=== PATIENT | male | born 1945 | race Caucasian/White ===

== ENCOUNTER 2017-03-05 16:39 | Emergency (ER) | payer MEDICARE, BC ==
[2017-03-05 17:19] VITALS: BP 137/74
[2017-03-05] MEDS ORDERED: Cephalexin 250 MG Cap PO ONE (17:26)
[2017-03-05] MEDS ORDERED: Bacitracin/Neomycin/Polymyxin B Oint 0.9 GM U/D Packet ONE (17:28)
--- NOTE | 2017-03-05 17:32 | EDM.PDOC ---
ED HPI GENERAL MEDICAL PROBLEM - General Chief Complaint: Upper Extremity Injury/Pain Stated Complaint: FINGER LACERATION Time Seen by Provider: 03/05/17 17:26 Source of Information: Reports: Patient History Limitations: Reports: No Limitations - History of Present Illness INITIAL COMMENTS - FREE TEXT/NARRATIVE: PT STATES HE WAS DOING WOODWORK WITH AN ELECTRIC SAW AND ACCIDENTALLY CUT LEFT INDEX FINGER. DENIES ANY OTHER INJURY. IS UTD WITH TD. 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 Pain Score (Numeric/FACES): 2 - Related Data Allergies Allergy/AdvReac Type Severity Reaction Status Date / Time No Known Drug Allergies Allergy Cannot Verified 10/20/15 22:21 Remember Home Meds: Home Meds Aspirin [Adult Low Dose Aspirin EC] 81 mg PO DAILY 06/28/14 [History] Atenolol [Tenormin] 25 mg PO DAILY 06/28/14 [History] Cholecalciferol (Vitamin D3) [Vitamin D] 2,000 unit PO DAILY 06/28/14 [History] Lutein/Minerals/Vit A,C & E [Ocuvite] 1 tab PO DAILY 06/28/14 [History] Cephalexin [Keflex] 500 mg PO TID #21 cap 03/05/17 [Rx] Social & Family History - Tobacco Use Smoking Status *Q: Never Smoker Second Hand Smoke Exposure: No - Caffeine Use Caffeine Use: Reports: Coffee - Alcohol Use Days Per Week of Alcohol Use: 0 - Recreational Drug Use Recreational Drug Use: No - Living Situation & Occupation Living situation: Reports: Single Review of Systems - Review of Systems Review Of Systems: ROS reveals no pertinent complaints other than HPI. Constitutional: Reports: No Symptoms Eyes: Reports: No Symptoms Ears: Reports: No Symptoms Nose: Reports: No Symptoms Mouth/Throat: Reports: No Symptoms Respiratory: Reports: No Symptoms Cardiovascular: Reports: No Symptoms GI/Abdominal: Reports: No Symptoms Genitourinary: Reports: No Symptoms Musculoskeletal: Reports: Hand Pain Skin: Reports: Wound (LEFT 4TH DIGIT) Neurological: Reports: No Symptoms Psychiatric: Reports: No Symptoms ED EXAM, GENERAL - Physical Exam Exam: See Below Exam Limited By: No Limitations General Appearance: Alert, WD/WN, No Apparent Distress Throat/Mouth: Normal Inspection, Normal Oropharynx, No Airway Compromise Head: Atraumatic, Normocephalic Respiratory/Chest: No Respiratory Distress Extremities: Other (LEFT 4TH DIGIT DISTAL ASPECT TISSUE AVULSION INVOLVING 1/4 NAIL AND TIP) Neurological: Alert, Oriented, Normal Cognition Psychiatric: Normal Affect, Normal Mood Skin Exam: Warm, Dry, Normal Color, No Rash Course - Vital Signs Last Recorded V/S: Last Vital Signs Temp 99.3 F 03/05/17 16:55 Pulse 84 03/05/17 16:55 Resp 20 03/05/17 16:55 BP 137/74 03/05/17 16:55 Pulse Ox 96 03/05/17 16:55 - Orders/Labs/Meds Orders: Active Orders 24 hr Category Date Time Status Hand 2V Lt [CR] Stat Exams 03/05/17 17:04 Taken Cephalexin [Keflex] Med 03/05/17 17:26 Once 500 mg PO ONETIME ONE - Radiology Interpretation Free Text/Narrative:: LEFT 4TH DIGIT XRAY SHOWS NO FRACTURE - Re-Assessments/Exams Free Text/Narrative Re-Assessment/Exam: 03/05/17 17:32 PT AFEBRILE, NONTOXIC APPEARING, VSS. WOUND HEMOSTATIC AND CLEANED AND DRESSED WITH NEOSPORIN /NONADHESIVE. KEFLEX 500MG GIVEN Departure - Departure Time of Disposition: 17:34 Disposition: Home, Self-Care 01 Condition: Good Clinical Impression: Laceration of finger of left hand with damage to nail Qualifiers: Encounter type: initial encounter Finger: index finger Foreign body presence: without foreign body Qualified Code(s): S61.311A - Laceration without foreign body of left index finger with damage to nail, initial encounter - Discharge Information Instructions: Laceration Care, Adult, [id number], Nail Bed Injury, Easy-to- Read Referrals: Alicja Rivers MD [Primary Care Provider] - Additional Instructions: FOLLOW UP AT [facility] NEXT WEEK FOR RECHECK. RETURN TO ER SOONER IF SYMPTOMS CONTINUE - My Orders Last 24 Hours: My Active Orders 03/05/17 17:04 Hand 2V Lt [CR] Stat 03/05/17 17:26 Cephalexin [Keflex] 500 mg PO ONETIME ONE - Assessment/Plan Last 24 Hours: My Active Orders 03/05/17 17:04 Hand 2V Lt [CR] Stat 03/05/17 17:26 Cephalexin [Keflex] 500 mg PO ONETIME ONE Assessment:: LACERATION TO LEFT INDEX FINGER Plan: F/U WITH PCP
== END 2017-03-05 18:00 | disposition home or self-care (01) ==
LOC: KA.ED 16:39
DX: S61.311A Laceration without foreign body of left index finger with damage to nail, initial encounter (principal); Z79.82 Long term (current) use of aspirin; Z79.899 Other long term (current) drug therapy; W27.0XXA Contact with workbench tool, initial encounter
CPT/HCPCS: 73120; 99283; A9270

== ENCOUNTER 2017-04-01 08:09 | Day surgery (SDC) | payer MEDICARE, BC ==
[~2017-04-01 08:09] MED LIST: Lactated Ringers 1,000 ML IV SCH; Sodium Chloride 0.9% 5 ML Syringe FLUSH PRN
[2017-04-01] MEDS ORDERED: fentaNYL 100 MCG/2 ML SDV ONE (08:17)
[2017-04-01] MEDS ORDERED: Midazolam 1 MG/ML 2 ML SDV ONE (08:17)
[2017-04-01] MEDS ORDERED: Propofol 200 MG/20 ML SDV ONE (08:17)
[2017-04-01] MEDS ORDERED: EPINEPHrine 1:10,000 1 MG/10 ML Syringe ONE (08:36)
[2017-04-01] MEDS ORDERED: Propofol 200 MG/20 ML SDV IV ONE (09:48)
[2017-04-01] MEDS ORDERED: Midazolam 1 MG/ML 2 ML SDV IV ONE (09:48)
[2017-04-01] MEDS ORDERED: fentaNYL 100 MCG/2 ML SDV IV ONE (09:48)
--- NOTE | 2017-04-01 10:16 | PCM.OPNOTE ---
- General Post-Op/Procedure Note Date of Surgery/Procedure: 04/01/17 Operative Procedure(s): Colonoscopy and polypectomy Findings: Normal colonoscopy except for polyp at 15 cm from the anal margin. Pre Op Diagnosis: Screening colonoscopy. Hemoccult-positive stool. Post-Op Diagnosis: Normal colonoscopy except for polyp at 15 cm from the anal margin. Anesthesia Technique: MAC Primary Surgeon: Alicja Rivers Condition: Good Free Text/Narrative:: INFORMED CONSENT: Patient is here today for elective colonoscopy. All aspects of this procedure have been discussed with the patient. All possible complications also, including possibility of perforation, infection, pain, bleeding and unknown complications. In the event of perforation patient may need to have abdominal exploration, colon resection, colostomy and even was discussed. Anesthetic complications were handled by anesthesia department. The patient understands fully well. Patient did not have any further questions for me at the end of my interview. The patient wishes for me to proceed. PREOPERATIVE DIAGNOSIS/INDICATIONS: [Screening] POSTOPERATIVE DIAGNOSIS: [Polyp at 15 cm. Otherwise negative colonoscopy.] INSTRUMENT USED: Olympus videocolonoscope. ASA CLASSIFICATION: [2] ANESTHESIA: Continuous EKG, oximetry and intermittent blood pressure and respiratory monitoring were performed throughout the procedure. IV Versed and Fentanyl were administered. PROCEDURE PERFORMED: Colonoscopy POSITIONS OF PATIENT: Left lateral. RECTUM: Approximate 15 cm from the anal margin and black polyp was identified. This was completely removed using a hot biopsy forceps.. SIGMOID COLON: Normal. DESCENDING COLON: Normal. SPLENIC FLEXURE: Normal. TRANSVERSE COLON: Normal. HEPATIC FLEXURE: Normal. ASCENDING COLON: Normal. CECUM: Normal. ILEOCECAL VALVE: Normal. BIOPSY: None. TOLERANCE: Excellent. COMPLICATIONS: None. Final diagnosis: Normal colonoscopy except for polyp at 15 cm from the anal margin.
[2017-04-01 11:48] VITALS: BP 107/60
== END 2017-04-01 11:15 | disposition home or self-care (01) ==
LOC: KA.SDS 08:09
PROVIDERS: ATTEND Family Medicine
DX: Z12.11 Encounter for screening for malignant neoplasm of colon (principal); D12.6 Benign neoplasm of colon, unspecified; I10 Essential (primary) hypertension; E55.9 Vitamin D deficiency, unspecified; M19.90 Unspecified osteoarthritis, unspecified site; I25.119 Atherosclerotic heart disease of native coronary artery with unspecified angina pectoris; I83.891 Varicose veins of right lower extremity with other complications; E66.01 Morbid (severe) obesity due to excess calories; Z79.82 Long term (current) use of aspirin; Z79.899 Other long term (current) drug therapy; Z68.42 Body mass index [BMI] 45.0-49.9, adult
CPT/HCPCS: 00810; 45384; J2250; J2704; J3010; J7120; 88305

== ENCOUNTER 2019-05-19 21:43 | Emergency (ER) | payer MEDICARE, BC ==
--- NOTE | 2019-05-19 22:28 | EDM.PDOC ---
ED HPI GENERAL MEDICAL PROBLEM - General Chief Complaint: Genitourinary Problem Stated Complaint: CAN'T URINATE Time Seen by Provider: 05/19/19 22:04 Source of Information: Reports: Patient History Limitations: Reports: No Limitations - History of Present Illness INITIAL COMMENTS - FREE TEXT/NARRATIVE: Patient is a 73-year-old gentleman who presents to the emergency department this evening with a complaint of urinary retention. Patient underwent prostate biopsy this afternoon at 1430. Patient states in centimeters been unable to urinate. He said some small dribbling of blood from penis. Patient states he has bladder fullness. Patient denies chest pain, shortness of breath, fever, testicular pain, nausea or vomiting. Onset: Today, Gradual Duration: Hour(s): Location: Reports: Abdomen Quality: Reports: Pressure Severity: Moderate Improves with: Reports: None Worsens with: Reports: None Associated Symptoms: Reports: No Other Symptoms - Related Data Allergies Allergy/AdvReac Type Severity Reaction Status Date / Time No Known Drug Allergies Allergy Cannot Verified 04/01/17 08:21 Remember Home Meds: Home Meds Aspirin [Adult Low Dose Aspirin EC] 81 mg PO DAILY 06/28/14 [History] Atenolol [Tenormin] 25 mg PO DAILY 06/28/14 [History] Cholecalciferol (Vitamin D3) [Vitamin D] 2,000 unit PO DAILY 06/28/14 [History] Lutein/Minerals/Vit A,C & E [Ocuvite] 1 tab PO DAILY 06/28/14 [History] Past Medical History HEENT History: Reports: Impaired Vision Cardiovascular History: Reports: Angina, High Cholesterol, Hypertension, SD, Other (See Below) Other Cardiovascular History: edema Gastrointestinal History: Reports: Hemorrhoids - Infectious Disease History Infectious Disease History: Reports: Rheumatic Fever - Past Surgical History HEENT Surgical History: Reports: Tonsillectomy Cardiovascular Surgical History: Reports: None GI Surgical History: Reports: Colonoscopy Musculoskeletal Surgical History: Reports: Joint Replacement Social & Family History - Family History Cardiac: Reports: Hypertension, SD Endocrine/Metabolic: Reports: Diabetes, type II Oncologic: Reports: Prostate - Caffeine Use Caffeine Use: Reports: Coffee - Living Situation & Occupation Living situation: Reports: Single ED ROS GENERAL - Review of Systems Review Of Systems: Comprehensive ROS is negative, except as noted in HPI. Constitutional: Reports: No Symptoms HEENT: Reports: No Symptoms Respiratory: Reports: No Symptoms Cardiovascular: Reports: No Symptoms Endocrine: Reports: No Symptoms GI/Abdominal: Reports: Abdominal Pain : Reports: Hematuria, Urinary Retention Musculoskeletal: Reports: No Symptoms Skin: Reports: No Symptoms Neurological: Reports: No Symptoms Psychiatric: Reports: No Symptoms Hematologic/Lymphatic: Reports: No Symptoms Immunologic: Reports: No Symptoms ED EXAM, RENAL/ - Physical Exam Exam: See Below Exam Limited By: No Limitations General Appearance: Alert, WD/WN, No Apparent Distress Throat/Mouth: Normal Inspection, Normal Oropharynx, No Airway Compromise Respiratory/Chest: No Respiratory Distress, Lungs Clear Cardiovascular: Normal Peripheral Pulses, Regular Rate, Rhythm GI/Abdominal: Normal Bowel Sounds, Soft, Tender (Mild suprapubic) (Male) Exam: No Hernia, Normal Inspection, Circumcised, Suprapubic Fullness. No: Hernia, Scrotal Swelling, Scrotum Tenderness (L), Scrotum Tenderness (R), Testicular Mass, Testicular Tenderness (L), Testicular Tenderness (R) Back Exam: Normal Inspection. No: CVA Tenderness (L), CVA Tenderness (R) Extremities: Normal Inspection Neurological: Alert, Oriented, Normal Cognition Psychiatric: Normal Affect, Normal Mood Skin Exam: Warm, Dry, Intact, Normal Color, No Rash Course - Orders/Labs/Meds Orders: Active Orders 24 hr Category Date Time Status Parks Catheter Insertion [Insert Urinary Catheter] [OM. Care 05/19/19 22:15 Ordered PC] Q24H Urinary Catheter Assessment [RC] ASDIRECTED Care 05/19/19 22:14 Ordered - Re-Assessments/Exams Free Text/Narrative Re-Assessment/Exam: 05/19/19 22:31 Following urinary Parks placement, catheter was irrigated copiously to remove clots. Once urine was clear. Leg bag was attached. Patient will be discharged with leg bag and follow-up at the [facility] tomorrow. Patient afebrile, vital signs stable, abdominal pressure relieved. Patient tolerated procedure well. 05/19/19 22:34 Departure - Departure Time of Disposition: 22:33 Disposition: Home, Self-Care 01 Condition: Good Clinical Impression: Retention of urine - Discharge Information Instructions: Acute Urinary Retention, Male, [id number], Indwelling Urinary Catheter Care, Adult Referrals: Alicja Rivers MD [Primary Care Provider] - Forms: ED Department Discharge Additional Instructions: Follow-up at [facility] tomorrow. Contact them at 8 a.m. for appointment time. Return to emergency department sooner if symptoms continue or worsen. - My Orders Last 24 Hours: My Active Orders 05/19/19 22:14 Urinary Catheter Assessment [RC] ASDIRECTED 05/19/19 22:15 Parks Catheter Insertion [Insert Urinary Catheter] [OM.PC] Q24H - Assessment/Plan Last 24 Hours: My Active Orders 05/19/19 22:14 Urinary Catheter Assessment [RC] ASDIRECTED 05/19/19 22:15 Parks Catheter Insertion [Insert Urinary Catheter] [OM.PC] Q24H Assessment:: Urinary retention Plan: Follow-up at clinic tomorrow
[2019-05-19 23:16] VITALS: BP 150/77; PULSE 96
== END 2019-05-19 23:00 | disposition home or self-care (01) ==
LOC: KA.ED 21:43
DX: R33.9 Retention of urine, unspecified (principal); R31.9 Hematuria, unspecified; I10 Essential (primary) hypertension; I25.2 Old myocardial infarction; Z79.82 Long term (current) use of aspirin; Z79.899 Other long term (current) drug therapy
CPT/HCPCS: 51702; 99283-25

== ENCOUNTER 2024-12-17 09:30 | Emergency (ER) | payer MEDICARE ==
[2024-12-17] MEDS: Diphtheria,Pertussis(Acell),Tetanus Vaccine 0.5 ML Syringe IM ONE (10:00)
== END 2024-12-17 10:32 | disposition home or self-care (01) ==
LOC: KA.ED 09:30 → MERGE 09:30 → KA.ED 10:32
DX: S61.011A Laceration without foreign body of right thumb without damage to nail, initial encounter (principal); Z23 Encounter for immunization; I10 Essential (primary) hypertension; I25.2 Old myocardial infarction; Z79.82 Long term (current) use of aspirin; Z79.899 Other long term (current) drug therapy
CPT/HCPCS: 12002; 73140-F5; 90471; 90715; 99283; 99283-25; J3490